=== PATIENT | female | born 2000 | race Caucasian/White ===

== ENCOUNTER → 2022-08-14 | Outpatient (CLI) | payer MEDICAID, SELFPAY ==
[2022-08-14 16:00] LABS: Absolute Neutrophil Count 8.8 X10^3/uL (2.0-7.7); Basophil# 0.05 X10^3/uL; Basophil% 0.4 % (0-1); Eosinophil# 0.17 X10^3/uL; Eosinophils% 1.4 % (0-5); Hematocrit 40.2 % (37-47); Hemoglobin 13.9 g/dL (12.0-15.0); Lymphocyte % 18.6 % (19-41); Mean Corp Hgb Conc 34.6 g/dL (32-36); Mean Corpuscular Hgb 32.3 pg (27.0-32.0); Mean Corpuscular Volume 93.3 fL (81-99); Mean Platelet Vol. 10.4 fl (6.2-12.0); Monocyte# 1.01 X10^3/uL; Monocyte% 8.2 % (0-10); NRBC Flagged by Analyzer 0 % (0-5); Neutrophil # 8.76 X10^3/uL (2.7-7.7); Neutrophil % 70.8 % (47-70); Platelet Count 201 K/mm3 (150-450); RBC Distribution Width CV 12.8 % (11.6-14.6); Red Blood Count 4.31 M/mm3 (4.2-5.4); White Blood Count 12.4 K/mm3 (4.4-11.0)
[2022-08-14 16:54] LABS: NATERA MAILED SPECIMEN
[2022-08-14 17:17] LABS: HIV - WCH Non-Reactive (Nonreactive); Hepatitis B Surface Antigen Non-Reactive (Nonreactive); Hepatitis C Antibody Non-Reactive (Nonreactive); Rubella IgG Reactive (Nonreactive); Syphilis Antibodies Non-reactive
[2022-08-17 12:08] LABS: Chlamydia By Nucleic Acid AMP Negative (Negative); Gonococcus By Nucleic Acid AMP Negative (Negative)
[2022-08-23 21:07] LABS: HPV APTIMA, High Risk Positive (Negative)
[2022-08-24 21:10] LABS: HPV Reflexed? YES, CHARGE PATIENT
== END | disposition home or self-care (01) ==
PROVIDERS: Referring Provider Advanced Practice Midwife; Visit Provider Advanced Practice Midwife
DX: O09.90 Supervision of high risk pregnancy, unspecified, unspecified trimester (principal); Z3A.00 Weeks of gestation of pregnancy not specified
CPT/HCPCS: 36415; 85025; 86703; 86762; 86780; 86803; 86850; 86900; 86901; 87086; 87340; 87491; 87591; 87624; 88175; G0145

== ENCOUNTER → 2022-12-04 | Outpatient (CLI) | payer MEDICAID, SELFPAY ==
[2022-12-04 13:40] LABS: Absolute Lymphocyte Count 2.06 X10^3/uL (0.83-4.51); Absolute Neutrophil Count 11.2 X10^3/uL (2.0-7.7); Basophil# 0.08 X10^3/uL; Basophil% 0.5 % (0-1); Eosinophil# 0.12 X10^3/uL; Eosinophils% 0.8 % (0-5); Hematocrit 36.8 % (37-47); Lymphocyte # 2.06 X10^3/ul (0.83-4.51); Lymphocyte % 14.1 % (19-41); Mean Corp Hgb Conc 32.6 g/dL (32-36); Mean Corpuscular Hgb 32.6 pg (27.0-32.0); Mean Platelet Vol. 10.6 fl (6.2-12.0); Monocyte# 0.77 X10^3/uL; Monocyte% 5.3 % (0-10); NRBC Flagged by Analyzer 0 % (0-5); Neutrophil # 11.21 X10^3/uL (2.7-7.7); Neutrophil % 76.8 % (47-70); Platelet Count 189 K/mm3 (150-450); Red Blood Count 3.68 M/mm3 (4.2-5.4); White Blood Count 14.6 K/mm3 (4.4-11.0)
[2022-12-04 14:14] LABS: Glucose Challenge Gest 1H 50g 135 mg/dL (70-140)
[2022-12-04 14:50] LABS: HIV - WCH Non-Reactive (Nonreactive); Syphilis Antibodies Non-reactive
== END | disposition home or self-care (01) ==
PROVIDERS: Obstetrics & Gynecology; Referring Provider Nurse Practitioner Women's Health; Visit Provider Nurse Practitioner Women's Health
DX: O09.92 Supervision of high risk pregnancy, unspecified, second trimester (principal); Z3A.23 23 weeks gestation of pregnancy
CPT/HCPCS: 36415; 82950; 85025; 86703; 86780

== ENCOUNTER → 2023-01-13 | Outpatient (CLI) | payer MEDICAID, SELFPAY ==
[2023-01-13 10:32] LABS: Glucose GTT-Gestation. Fasting 90 mg/dL (<105)
[2023-01-13 11:56] LABS: Glucose GTT-Gestational 1 Hr 202 mg/dL (<190)
[2023-01-13 12:51] LABS: Glucose GTT-Gestational 2 Hr 148 mg/dL (<165)
[2023-01-13 13:47] LABS: Glucose GTT-Gestational 3 Hr 114 L (<145)
== END | disposition home or self-care (01) ==
LOC: LAB 09:47
PROVIDERS: Referring Provider Registered Nurse; Visit Provider Registered Nurse
DX: Z13.1 Encounter for screening for diabetes mellitus (principal)
CPT/HCPCS: 36415; 82951; 82952

== ENCOUNTER → 2023-02-04 | Outpatient (CLI) | payer MEDICAID, SELFPAY ==
[2023-02-04 18:33] LABS: Group B Strep DNA By PCR Negative (Negative); Internal Control PASS; Probe Check PASS; Specimen Processing Control PASS
== END | disposition home or self-care (01) ==
LOC: LABSPEC 15:42
PROVIDERS: Referring Provider Advanced Practice Midwife; Visit Provider Advanced Practice Midwife
DX: Z34.90 Encounter for supervision of normal pregnancy, unspecified, unspecified trimester (principal)
CPT/HCPCS: 87081; 87653

== ENCOUNTER 2023-03-08 02:30 | Inpatient (IN) | payer MEDICAID, SELFPAY ==
[2023-03-07 19:28] VITALS: PULSE 63; O2SAT 82
[2023-03-07 19:29] VITALS: PULSE 73; O2SAT 98
[2023-03-07 19:32] VITALS: BP 114/74; PULSE 87; TEMP 37.3
[2023-03-07 19:48] VITALS: BMI 31.7
--- NOTE | 2023-03-07 23:20 | HP.PCM.OB_ITS ---
HPI - General HPI Narrative LEROY COHEN, is a 22 F who presents for IOL secondary to postdates. no vb lof admits good fm no regular ctx Maternal Data Information CARMEN Calculator Estimated Delivery Date Method Current WG Current Estimate 03/01/23 Ultrasound #2 40w 6d Other Estimates 03/18/23 LMP (Uncertain) 38w 3d 03/08/23 Ultrasound #1 39w 6d PFSH PFSH Medical History ASCUS with positive high risk HPV Home Medications NK 08/14/22 [History Last Taken Unknown] Allergy/AdvReac Type Severity Reaction Status Date / Time Sulfa (Sulfonamide Allergy Unknown Other Verified 03/07/23 19:30 Antibiotics) Family History Mother Diabetes Brother Diabetes Social History adopted: No household members: significant other and children number of children: 1 current occupational status: employed current occupation: [employer] pets and animals: Yes pets and animals: dog(s), bird(s), gerbil(s) and iguana(s) history of recent travel: No sexually active: Yes Smoking Status: Never smoker alcohol intake: never substance use type: does not use caffeine: No seatbelt use: always additional social history: BF- Mejia History 2 Elective abortions Hx Para 0 Spontaneous abortions Hx # Term Pregnancies Ectopic pregnancies Hx # Pregnancies Multiple births # of living children Visit Details Expected Delivery Route/Plan Labor Preferences- CB/BF classes: encouraged labor support person: Mejia labor intervention preferences: [] pain management options preferred: epidural cut cord/dad catch: cord : no PP control planned: [] discussed possible routes of delivery and associated risks: [] special requests: [] Plans Covid status: never relieved vaccine. Flu vaccine: declines Tdap vaccine: discussed Rhogam: NA LARC form signed: declined movement and labor precautions reviewed. Problem list reviewed and updated with the most current plan of care details and appropriate orders placed. Relevant counseling for the gestational age provided. Continue routine care and follow up unless otherwise noted in visit notes/problem list details OB Flowsheet Initial Weight: 144 lb Date -?-?-?-?-?-?-?-?-?-?-?-?- EGA Weight BP Urine Prot -?-?-?-?-?-?-?-?-?-?-?-?- Glucose FHR FuHt Pres Dilation -?-?-?-?-?-?-?-?-?-?-?-?- Effaced St Visit Note 08/14/22 -?-?-?-?-?-?-?-?-?-?-?-?- 11w 4d 144 lb 7 oz (+7 oz) 121/76 -?-?-?-?-?-?-?-?-?-?-?-?- 171 -?-?-?-?-?-?-?-?-?-?-?-?- KW-CRL not consi stent with dates. CARMEN changed. JV scanned 09/12/22 -?-?-?-?-?-?-?-?-?-?-?-?- 15w 5d 147 lb 8 oz (+3 lb 8 oz) 119/72 Negative -?-?-?-?-?-?-?-?-?-?-?-?- Negative 150 -?-?-?-?-?-?-?-?-?-?-?-?- JV- normal NIPT and carrier screen. no complaints today. anatomy scan scheduled for 10/0711/06/22 -?-?-?-?-?-?-?-?-?-?-?-?- 23w 4d 157 lb 6 oz (+13 lb 6 oz) 98/62 Negative -?-?-?-?-?-?-?-?-?-?-?-?- Negative 148 -?-?-?-?-?-?-?-?-?-?-?-?- MH-No Vb, LOF. G ojill Fm. Denies concerns 12/04/22 -?-?-?-?-?-?-?-?-?-?-?-?- 27w 4d 164 lb 2 oz (+20 lb 2 oz) 120/72 Negative -?-?-?-?-?-?-?-?-?-?-?-?- Negative 140 27 -?-?-?-?-?-?-?-?-?-?-?-?- LC- no vb/ctx/lo f. good fm. glucose 135, will obtain 3 hour glucose. discussed tdap. considering. 12/24/22 -?-?-?-?-?-?-?-?-?-?-?-?- 30w 3d 169 lb 6 oz (+25 lb 6 oz) 112/67 Negative -?-?-?-?-?-?-?-?-?-?-?-?- Negative 140 32 -?-?-?-?-?-?-?-?-?-?-?-?- SM- no vb lof go od fm no regular ctx 01/13/23 -?-?-?-?-?-?-?-?-?-?-?-?- 33w 2d 171 lb (+27 lb) 109/65 -?-?-?-?-?-?-?-?-?-?-?-?- 135 33 -?-?-?-?-?-?-?-?-?-?-?-?- LC- passed 3 angela r glucose. declines flu/tdap. no ctx/lof/vb. good fm. 01/28/23 -?-?-?-?-?-?-?-?-?-?-?-?- 35w 3d 176 lb 8 oz (+32 lb 8 oz) 113/72 Negative -?-?-?-?-?-?-?-?-?-?-?-?- Negative 135 35 -?-?-?-?-?-?-?-?-?-?-?-?- KW-no vb/lof/ctx . good fm. no concerns today. gbs next visit. 02/04/23 -?-?-?-?-?-?-?-?-?-?-?-?- 36w 3d 177 lb 2 oz (+33 lb 2 oz) Negative -?-?-?-?-?-?-?-?-?-?-?-?- Negative 135 37 1 -?-?-?-?-?-?-?-?-?-?-?-?- 60 -2 KW-no lof/ lof/ctx. good fm. GBS today. FMLA papers received and given to triage. 02/14/23 -?-?-?-?-?-?-?-?-?-?-?-?- 37w 6d 178 lb 6 oz (+34 lb 6 oz) 120/82 Negative -?-?-?-?-?-?--?-?-?-?-?-?- Negative 130 39 1 -?-?-?-?-?-?-?-?-?-?-?-?- 50 -2 kw- no vb/ lof/ctx. good fm. labor precautions. 02/20/23 -?-?-?-?-?-?-?-?-?-?-?-?- 38w 5d 182 lb (+38 lb) 113/73 Negative -?-?-?-?-?-?-?-?-?-?-?-?- Negative 135 38 1 -?-?-?-?-?-?-?-?-?-?-?-?- 50 -2 kw-no vb/l of/ctx. good fm. note given to be off work due to travel and heavy lifting requirements. Discussed IOL at 41 weeks 02/28/23 -?-?-?-?-?-?-?-?-?-?-?-?- 39w 6d 180 lb 4 oz (+36 lb 4 oz) 116/75 Negative -?-?-?-?-?-?-?-?-?-?-?-?- Negative 134 38 1 -?-?-?-?-?-?-?-?-?-?-?-?- 30 -3 JV- head b allotable today. not a good candidate for early IOL, but will set up for 41 weeks. no lof, vaginal bleeding, or dec fm. NST FHR Rate Baby A Baseline: 140-150 Variability:: Moderate Accelerations:: 15 x 15 Decelerations:: None NST Reactive:: Yes FHR Category:: Category I (isolated late decel initially, then reactive cat I tracing after) Uterine Activity:: irregular ROS Constitutional Constitutional: Reports systems reviewed and no addt'l complaints, except as documented Eyes Eyes: Denies change in vision ENT HEENT: Reports systems reviewed and no addt'l complaints, except as documented; Denies headache(s) Cardiovascular Cardiovascular: Reports systems reviewed and no addt'l complaints, except as documented; Denies chest pain or dyspnea Respiratory/Chest Respiratory/Chest: Reports systems reviewed and no addt'l complaints, except as documented Gastrointestinal Gastrointestinal: Reports systems reviewed and no addt'l complaints, except as documented; Denies abdominal pain Genitourinary Genitourinary: Reports systems reviewed and no addt'l complaints, except as documented, contractions Details: present (irregular) and movement Details: present; Denies dysuria or genital lesions Musculoskeletal Musculoskeletal: Reports systems reviewed and no addt'l complaints, except as documented Neurologic Neurologic: Reports systems reviewed and no addt'l complaints, except as documented Endocrine Endocrinology: Reports systems reviewed and no addt'l complaints, except as documented Vital Signs Vital Signs Vital Signs: 03/07/23 19:28 03/07/23 19:28 03/07/23 19:29 Temperature Pulse Rate 63 73 Blood Pressure BP Systolic BP Diastolic Pulse Ox 82 03/07/23 19:29 03/07/23 19:32 03/07/23 19:32 Temperature Pulse Rate 87 Blood Pressure 114/74 BP Systolic 114 BP Diastolic 74 Pulse Ox 98 03/07/23 19:32 Temperature 99.2 F H Pulse Rate Blood Pressure BP Systolic BP Diastolic Pulse Ox Weight Weight: 185 lb Body Mass Index (BMI) 31.7 Physical Exam Const alert, oriented x3, no apparent distress and healthy appearing HEENT normocephalic and moist oral mucous membranes Head and Scalp: atraumatic Neck full ROM, no lymphadenopathy, supple and thyroid normal General: trachea midline Lymph Lymphatic: no lymphadenopathy noted Chest inspection of chest normal Resp normal respiratory effort Cardio regular rate GI normal to inspection, nondistended, normoactive bowel sounds, soft to palpation and non-tender Inspection: gravid external exam normal Manual OB Exam: estimated gestational size appropriate, presentation cephalic, dilated, effaced and station Extremity normal to inspection General Extremity: Negative for edema Skin no rashes or lesions noted Neuro no focal motor deficits and deep tendon reflexes 2+ bilaterally Motor Exam: strength 5/5 throughout and clonus absent Psych mental status grossly normal Labs Labs Labs: Blood Type O POSITIVE Antibody Screen NEGATIVE Hct 36.8 % (37-47) L Hgb 12.0 g/dL (12.0-15.0) Syphilis Total Ab Non-reactive Rubella IgG Antibody Reactive (Nonreactive) Hep Bs Antigen Non-Reactive (Nonreactive) Hepatitis C Antibody Non-Reactive (Nonreactive) Chlamydia DNA (RUBEN) Negative (Negative) N.gonorrhoeae DNA (RUBEN) Negative (Negative) HIV 1&2 Antibody Non-Reactive (Nonreactive) Glucose 1 Hr 50 gm 135 mg/dL (70-140) Gest Glucose Tolerance MG/DL Group B Strep DNA Negative (Negative) Assessment & Plan (1) : QUALIFIERS: Weeks of gestation: 39 weeks Qualified Code(s): Z3A.39 - 39 weeks gestation of COMMENT: GBS neg, nl anatomy, NIPT low risk, carrier neg. , discussed AFP (2) Supervision of high risk , antepartum: COMMENT: [id number] CARMEN 03/01/23 Girl Joshua Ba (3) ASCUS with positive high risk HPV: COMMENT: repeat pap in 1 year (4) Abnormal glucose affecting : COMMENT: normal 3 hr gtt (5) Encounter for induction of labor: (6) Post term , 41 weeks: PLAN: Plan Patient presents IOL, plan management for with cytotec then pit fb. Pain management: plans epidural. GBS negative. Management of any complications: none I have reviewed the [facility] and made any clinically relevant updates.
[2023-03-07 23:50] VITALS: PULSE 79; O2SAT 98
[2023-03-08] VITALS (39 sets, daily range): BP systolic 95–135; BP diastolic 47–79; PULSE 52–85; TEMP 36.3–37.7; O2SAT 79–99
[2023-03-08] MEDS: Lactated Ringers 1,000 ML 50 ML IV (02:50)
[2023-03-08 03:03] LABS: Absolute Neutrophil Count 11.1 X10^3/uL (2.0-7.7); Basophil# 0.08 X10^3/uL; Basophil% 0.5 % (0-1); Eosinophil# 0.16 X10^3/uL; Hematocrit 35.1 % (37-47); Hemoglobin 11.6 g/dL (12.0-15.0); Lymphocyte % 16.9 % (19-41); Mean Corpuscular Hgb 31.4 pg (27.0-32.0); Mean Corpuscular Volume 95.1 fL (81-99); Mean Platelet Vol. 11.1 fl (6.2-12.0); Monocyte# 1.24 X10^3/uL; NRBC Flagged by Analyzer 0 % (0-5); Neutrophil # 11.09 X10^3/uL (2.7-7.7); Platelet Count 169 K/mm3 (150-450); RBC Distribution Width CV 13.1 % (11.6-14.6); RBC Distribution Width SD 46.1 fl (35.1-43.9); Red Blood Count 3.69 M/mm3 (4.2-5.4); White Blood Count 15.4 K/mm3 (4.4-11.0)
[2023-03-08] MEDS: miSOPROStol 25 MCG TABLET VAGINAL (03:41)
[2023-03-08 04:06] LABS: Syphilis Antibodies Non-reactive
[2023-03-08] MEDS: miSOPROStol 25 MCG TABLET PO (08:43)
[2023-03-08] MEDS: 0.9% Normal Saline Single 100 ML IV.SOLN. INTRA-UTER (10:09)
--- NOTE | 2023-03-08 10:37 | PCM.PN.BLA ---
Progress Note fb inserted 1-2 50 -2 anterior soft cat I tracing overall, upon review some periods of minimal variability
[2023-03-08] MEDS: Acetaminophen 500 MG Tablet PO (11:43)
[2023-03-08] MEDS: Oxytocin 15 Units/NS 250ml 15 UNITS/250 ML IV.SOLN 2 UNITS IV (12:43)
[2023-03-08] MEDS: 0.9% Saline Lock 10 ML Syringe IV (12:43)
[2023-03-08] MEDS: LACTATED RINGERS 500 ML 999 ML IV (18:16)
[2023-03-08] MEDS: fentaNYL-bupivacaine (epidural) 100 ML BAG EPIDURAL ×2 (19:09→23:09)
[2023-03-08] MEDS: Lactated Ringers 1,000 ML 200 ML IV (21:55)
[2023-03-09] VITALS (26 sets, daily range): BP systolic 97–115; BP diastolic 48–75; PULSE 57–100; RESP 14–16; TEMP 36.4–37.7; O2SAT 95–98
[2023-03-09] MEDS: Lactated Ringers 1,000 ML 200 ML IV (03:21)
--- NOTE | 2023-03-09 03:38 | PN_ITS ---
Progress Note circuit of labor positions done, pitocin washout and restart. MV units 190 inadequate at present current tracing: FHT: 130 min- Moderate variability positive accel early decelerations category II tracing, isolated late Miguel Barrera: q 2-3 Contractions reviewed tracing abnormalities since last note: intermittent early occasional variables some periods of minimal variability A/P: discussed inadequate conttractions, asynclitic presentation. rotated and closed knee position now, reevaluate in 2 hours or sooner based on tracing
[2023-03-09] MEDS: fentaNYL-bupivacaine (epidural) 100 ML BAG EPIDURAL (03:47)
[2023-03-09] MEDS: LACTATED RINGERS 500 ML 999 ML IV (04:12)
--- NOTE | 2023-03-09 06:35 | PCM.PN.BLA ---
Progress Note cat II tracing with min-mod variabilty recurrent earlys previously intermittent lates, now complete, pitocin reduced to half, positive scalp stimulation beging pusshing now patient counseled regarding possible vaccuum. /+2 without pushing
--- NOTE | 2023-03-09 07:02 | EX.PCM.OBRPT ---
Maternal Data Information CARMEN Calculator Estimated Delivery Date Method Current WG Current Estimate 03/01/23 Ultrasound #2 41w 1d Other Estimates 03/18/23 LMP (Uncertain) 38w 5d 03/08/23 Ultrasound #1 40w 1d Vaginal Delivery Operative Information Date of Procedure: 03/09/23 Pre-Operative Diagnosis: see a/p diagnoses Post-Operative Diagnosis: same Surgery / Procedure Performed: Spontaneous Vaginal Delivery Type of Anesthesia: Epidural Special Medications: none Estimated Blood Loss: 200 Fluids Replaced: crystalloid Findings Description of Procedure: Patient began pushing and delivered the head in the PRASHANTH presentation. The head was delivered atraumatically . The anterior and posterior shoulders delivered without complication followed by the rest of the and the infant was placed on the maternal abdomen. Delayed cord clamping was employed for approximately 60 seconds. Cord was clamped and cut and gentle traction was applied to the cord and the placenta delivered spontaneously immediately following it was noted to be intact with three-vessel cord. The perineum and vagina were inspected and noted to have a first degree perineal laceration which was repaired in the usual fashion with 3-0 vicryl rapide.. EBL was 200 cc. Patient and tolerated delivery well. Amniotic Fluid Description: Clear Placental Delivery Description: Spontaneous Placenta Disposition: [facility] Cord Vessel Description: 3 Vessels Cord Entanglement: None Delayed Cord Clamping: Yes Post Vaginal Delivery Medications Given After Delivery: - (Pitocin) Episiotomy Description: None Complication Complications: None Procedures Urinary/Genital [id number]: [id number] Vaginal Delivery+PP Care([facility])
--- NOTE | 2023-03-09 07:03 | DCINST_ITS ---
Discharge Instructions Diet Discharge Diet: No restrictions Activity Discharge Activity: Return to Normal Activity, May Not Drive (while taking narcotic pain medications.) and May Shower May resume sexual activity in: 4-6 weeks Dressing / Incision Call your doctor if your incision/area has: Continuous Slow Oozing, Sudden Increased Bleeding, Increased Pain/ Swelling, Increased Redness and Foul Smelling Discharge Follow Up Care Please Follow Up With: Dori Urrutia MD When: Call [phone] to make an appointment with your doctor in 6 weeks. If you had elevated blood pressure or 4th degree laceration, you will need to be seen in 2 weeks. Test Results: Test results from this visit will be discussed in further detail at your follow- up appointment, if applicable. Discharge Plan Admission Admit Date/Time: 03/08/23 02:30 Attending Provider: Dori Urrutia Primary Care Provider: Care Physician,No Primary Discharge Orders/Prescriptions Prescriptions: No Action NK Referrals / Follow Up: Care Physician,No Primary [Primary Care Provider] - Disposition Disposition (needs filled in before D/C Order can be placed): Home, Self Care
[2023-03-09] MEDS: Oxytocin 15 Units/NS 250ml 15 UNITS/250 ML IV.SOLN 83 UNITS IV (08:10)
[2023-03-09] MEDS: Methylergonovine 0.2 MG/ML Ampul IM (16:22)
--- NOTE | 2023-03-09 16:57 | NURSING ---
Late Entry: At 1525 this RN went into the room to obtain pts vital signs and get pt up to the bathroom. VS WNL see charting. Pt asymptomatic, pain controlled. Pt ambulates to bathroom with ease. Minimal bleeding on pad when taken off in the bathroom. Pt sat for several minutes unable to urinate. When pt got up to go back to bed there was a large clot in the hat and bleeding that totalled 250ml. Pt ambulated back to bed. Once back in bed pt laid flat and fundus palpated. Fundus 1 above umbilicus and firm with massage, bleeding was large amount. At this time this RN went to get supplies to straight cath patient and change pad as well as the scale and help from Saeed. When these nurses were back in the room abd palpated again. This time fundus was shifted to the right and 1 above umbilicus agian firm with palpation. Several large clots were expressed. Pads removed for weighing. Pt cleaned. Straight cath performed by this RN. Total of 750cc of urine was obtained. Pt remains asymptomatic and denies any increase in pain. Pt abd palpated again at that time. Fundus was firm at the umbilicus. Again large clots were expressed. After clots were expressed fundus was 1 below umbilicus. Pt remains asymtomatic and no increase in pain. Total QBL after weights of pads was 1243. Call will be made to Sonya. See further orders and charting in [facility].
[2023-03-09] MEDS: Acetaminophen 500 MG Tablet 1000 MG PO (17:30)
[2023-03-10 00:16] VITALS: BP 101/55; PULSE 71; RESP 18; TEMP 36.2; O2SAT 97
[2023-03-10] MEDS: Naproxen 500 MG Tablet PO (00:25)
[2023-03-10] MEDS: 0.9% Saline Lock 10 ML Syringe IV (00:26)
[2023-03-10 04:20] VITALS: BP 100/66; PULSE 73; RESP 16; TEMP 36.3; O2SAT 99
[2023-03-10 04:46] LABS: Absolute Lymphocyte Count 3.21 X10^3/uL (0.83-4.51); Absolute Neutrophil Count 14.3 X10^3/uL (2.0-7.7); Basophil# 0.09 X10^3/uL; Basophil% 0.5 % (0-1); Eosinophil# 0.22 X10^3/uL; Eosinophils% 1.1 % (0-5); Hematocrit 26.6 % (37-47); Hemoglobin 8.7 g/dL (12.0-15.0); Lymphocyte # 3.21 X10^3/ul (0.83-4.51); Lymphocyte % 16.2 % (19-41); Mean Corp Hgb Conc 32.7 g/dL (32-36); Mean Corpuscular Hgb 31.6 pg (27.0-32.0); Mean Corpuscular Volume 96.7 fL (81-99); Mean Platelet Vol. 11.5 fl (6.2-12.0); Monocyte# 1.66 X10^3/uL; Monocyte% 8.4 % (0-10); NRBC Flagged by Analyzer 0 % (0-5); Neutrophil # 14.32 X10^3/uL (2.7-7.7); POSITIVE DIFFERENTIAL YES; Platelet Count 147 K/mm3 (150-450); RBC Distribution Width CV 13.4 % (11.6-14.6); RBC Distribution Width SD 47.7 fl (35.1-43.9); Red Blood Count 2.75 M/mm3 (4.2-5.4); White Blood Count 19.9 K/mm3 (4.4-11.0)
[2023-03-10 04:55] LABS: Differential Indicated SCAN CRITERIA MET
[2023-03-10 06:09] LABS: Atypical Lymphocyte SCANNED %
[2023-03-10 07:58] VITALS: BP 84/49; PULSE 61; RESP 16; TEMP 36.1; O2SAT 97
[2023-03-10 08:01] VITALS: BP 95/50
--- NOTE | 2023-03-10 09:10 | PCM.PN.OB ---
Subjective Subjective Patient doing well without complaints. Tolerating PO. Ambulating and voiding without difficulty. Feeding well. Denies chest pain, shortness of breath, calf pain/swelling, fevers, chills, lightheadedness. Objective Data Objective Data Vital Signs: Vital Signs Temp Pulse Resp BP Pulse Ox O2 Del Method 97 F L 61 16 95/50 L 97 Room Air 03/10/23 07:58 03/10/23 07:58 03/10/23 07:58 03/10/23 08:01 03/10/23 07:58 03/10/23 07:58 Oxygen Delivery Method Room Air Weight: 185 lb Body Mass Index (BMI) 31.7 Intake & Output: Intake and Output for Last 24 Hours 03/08/23 03/09/23 03/10/23 23:59 23:59 23:59 Intake Total 1638.50 / 1638.50 3149.33 / 3149.33 Output Total 200 / 200 4197 / 4197 Balance 1438.50 / 1438.50 -1047.67 / -1047.67 Lab / Micro Data 03/10/23 04:30 Labs: Laboratory Results - last 24 hr 03/10/23 04:30: WBC 19.9 H, RBC 2.75 L, Hgb 8.7 L, Hct 26.6 L, MCV 96.7, MCH 31.6, MCHC 32.7, RDW Std Deviation 47.7 H, RDW Coeff of Lee 13.4, Plt Count 147 L, MPV 11.5, Immature Gran % (Auto) 1.800 H, Neut % (Auto) 72.0 H, Lymph % (Auto) 16.2 L, Daniels % (Auto) 8.4, Eos % (Auto) 1.1, Baso % (Auto) 0.5, Absolute Neuts (auto) 14.3 H, Absolute Lymphs (auto) 3.21, Nucleated RBC % 0, Diff Path Review May foll, Atypical Lymphocytes SCANNED Physical Exam Const alert and no apparent distress Chest inspection of chest normal Cardio regular rate and regular rhythm GI normal to inspection, nondistended, normoactive bowel sounds Uterus Palpation: uterus fundus firm Extremity normal to inspection and no calf tenderness Psych mental status grossly normal Assessment & Plan (1) Anemia: COMMENT: asymptomatic, continue PO iron until PP exam (2) care following vaginal delivery: PLAN: Plan s/p PPD # 1 1. routine post delivery care 2. breast feeding- support given 3. rh positive 4. rubella immune 5. d/c home
[2023-03-10 10:09] VITALS: BP 102/60; BP 102/65; BP 110/70; PULSE 102; PULSE 65; PULSE 71
[2023-03-10 12:05] VITALS: RESP 16
[2023-03-10 14:04] LABS: Pathologist Review Reviewed
== END 2023-03-10 12:05 | disposition home or self-care (01) | DRG 560 ==
LOC: WPOUT 02:37 → WP 02:37
PROVIDERS: Admitting Provider Obstetrics & Gynecology; Visit Provider Obstetrics & Gynecology
DX: O76 Abnormality in fetal heart rate and rhythm complicating labor and delivery (principal); Z37.0 Single live birth; O48.0 Post-term pregnancy; O70.0 First degree perineal laceration during delivery; O99.02 Anemia complicating childbirth; Z3A.41 41 weeks gestation of pregnancy
CPT/HCPCS: 59025; 59050; 85025; 86780; 86850; 86900; 86901; 99221; J7120; A4216; G0378